=== PATIENT | female | born 1985 | race Caucasian/White ===

== ENCOUNTER 2020-08-09 01:29 | Emergency (ER) | payer OTHER ==
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
--- OUTSIDE RECORDS SUMMARY | 2020-08-09 01:31 | XMS REPORT | Continuity of Care Document ---
:1985 Author Organization [facility] t Address [address] [place] [address] Care Team Providers Name Role Phone [place] VIZCARRA S Attending Clinician Problems This patient has no known problems. Allergies, Adverse Reactions, Alerts This patient has no known allergies or adverse reactions. Medications This patient has no known medications. Procedures This patient has no known procedures. Encounters Start End Encounter Admission Attending Care Care Encounter Source Date/Time Date/Time Type Type Clinicians Facility Department ID 2020-06-19 2020-06-19 Emergency [place] [facility] [id number] 05:17:00 06:09:00 Kvng Gabriel [id number] [place] [id number] [place] [id number] Results This patient has no known results.
[2020-08-09] MEDS ORDERED: NA CHLORIDE 0.9% 1,000 ML ONE (01:56)
[2020-08-09] MEDS ORDERED: LORazepam 2 MG/ML VIAL ONE (01:56)
[2020-08-09] MEDS ORDERED: dexAMETHasone 10 MG/ML VIAL ONE (02:02)
[2020-08-09] MEDS ORDERED: NA CHLORIDE 0.9% 250 ML ONE (02:02)
[2020-08-09] MEDS ORDERED: FAMOTIDINE 20 MG/2 ML VIAL IV ONE (02:02)
[2020-08-09] MEDS ORDERED: AZITHROMYCIN 500 MG INJ IVPB ONE (02:02)
[2020-08-09] MEDS ORDERED: CEFTRIAXONE/SWI 1gm 1 GM/10 ML SYR ONE (02:03)
[2020-08-09] MEDS ORDERED: ALBUTEROL INHALER 60 PUFF/8 GM IH ONE (02:39)
[2020-08-09] MEDS ORDERED: ASPIRIN 81 MG CHEWABLE TABLET ONE (02:39)
[2020-08-09 02:46] LABS: Protime INR 0.98
[2020-08-09 02:49] LABS: Absolute Lymphocytes (CBC) 1.1 K/uL (0.7-4.9); Basophils % 0.6 % (0-1.3); Hematocrit 36.3 % (36.0-45.0); Lymphocytes % 36.1 % (15.3-44.8); MPV 8.3 fL (7.6-11.3); RBC Red Blood Cell Count 4.47 M/uL (3.86-4.86)
[2020-08-09 03:10] LABS: ALT/SGPT 80 U/L (12-78); AST/SGOT 50 U/L (15-37); Albumin 3.3 g/dL (3.4-5.0); Alkaline Phosphatase 83 U/L (45-117); BUN Blood Urea Nitrogen 11 mg/dL (7-18); Bicarbonate 24 mmol/L (21-32); Bilirubin Direct < 0.1 mg/dL (0-0.2); Bilirubin Total 0.3 mg/dL (0.2-1.0); Ferritin 107.3 ng/mL (8-388); Glucose Level 108 mg/dL (74-106); NT PRO-BNP 16 pg/mL (<125); Potassium 3.2 mmol/L (3.5-5.1); Protein, Total 6.9 g/dL (6.4-8.2); Sodium Level 139 mmol/L (136-145); Troponin (Emerg Dept Use Only) < 0.02 ng/mL (0.0-0.045)
[2020-08-09] MEDS ORDERED: POTASSIUM 25 MEQ EFFERV TAB ONE (03:47)
--- NOTE | 2020-08-09 04:38 | EDPHYS ---
Physician Documentation [facility] Name: Sheela Garcia Age: 34 yrs Sex: Female : 1985 Arrival Date: 08/09/2020 Time: 01:30 Bed 6 Private MD: ED Physician Red Gutiérrez HPI: 08/09 01:41 This 34 yrs old Female presents to ER via EMS with complaints of Shortness Of mercy Breath. 01:41 The patient has shortness of breath at rest. Onset: The symptoms/episode began/occurred mercy 3 day(s) ago. Duration: The symptoms are continuous, and are steadily getting worse. The patient's shortness of breath has no apparent modifying factors. Associated signs and symptoms: The patient has no apparent associated signs or symptoms. Severity of symptoms: At their worst the symptoms were mild moderate in the emergency department the symptoms are unchanged. The patient has not experienced similar symptoms in the past. Historical: - Allergies: 01:32 No Known Allergies; rv - PMHx: 01:32 Anxiety; Depression; rv - PSHx: 01:32 None; rv - Immunization history:: Adult Immunizations up to date. - Social history:: Smoking status: unknown. ROS: 01:45 Eyes: Negative for injury, pain, redness, and discharge, ENT: Negative for injury, mercy pain, and discharge, Neck: Negative for injury, pain, and swelling, Cardiovascular: Negative for chest pain, palpitations, and edema, Abdomen/GI: Negative for abdominal pain, nausea, vomiting, diarrhea, and constipation, Back: Negative for injury and pain, : Negative for injury, bleeding, discharge, and swelling, MS/Extremity: Negative for injury and deformity, Skin: Negative for injury, rash, and discoloration, Neuro: Negative for headache, weakness, numbness, tingling, and seizure, Psych: Negative for depression, anxiety, suicide ideation, homicidal ideation, and hallucinations, Allergy/Immunology: Negative for hives, rash, and allergies, Endocrine: Negative for neck swelling, polydipsia, polyuria, polyphagia, and marked weight changes. 01:45 Constitutional: Positive for chills, fatigue. 01:45 Cardiovascular: Positive for palpitations. 01:45 Respiratory: Positive for cough, shortness of breath, at rest. Exam: 01:45 Constitutional: This is a well developed, well nourished patient who is awake, alert, mercy and in no acute distress. Head/Face: Normocephalic, atraumatic. Eyes: Pupils equal round and reactive to light, extra-ocular motions intact. Lids and lashes normal. Conjunctiva and sclera are non-icteric and not injected. Cornea within normal limits. Periorbital areas with no swelling, redness, or edema. ENT: Nares patent. No nasal discharge, no septal abnormalities noted. Tympanic membranes are normal and external auditory canals are clear. Oropharynx with no redness, swelling, or masses, exudates, or evidence of obstruction, uvula midline. Mucous membranes moist. Neck: Trachea midline, no thyromegaly or masses palpated, and no cervical lymphadenopathy. Supple, full range of motion without nuchal rigidity, or vertebral point tenderness. No Meningismus. Chest/axilla: Normal chest wall appearance and motion. Nontender with no deformity. No lesions are appreciated. Abdomen/GI: Soft, non-tender, with normal bowel sounds. No distension or tympany. No guarding or rebound. No evidence of tenderness throughout. Back: No spinal tenderness. No costovertebral tenderness. Full range of motion. Female : Normal external genitalia. Skin: Warm, dry with normal turgor. Normal color with no rashes, no lesions, and no evidence of cellulitis. MS/ Extremity: Pulses equal, no cyanosis. Neurovascular intact. Full, normal range of motion. Neuro: Awake and alert, GCS 15, oriented to person, place, time, and situation. Cranial nerves II-XII grossly intact. Motor strength 5/5 in all extremities. Sensory grossly intact. Cerebellar exam normal. Normal gait. Psych: Awake, alert, with orientation to person, place and time. Behavior, mood, and affect are within normal limits. 01:45 Cardiovascular: Rate: tachycardic, Rhythm: regular, Pulses: Pulses are 4+ in bilateral radial, brachial, femoral, popliteal, posterior tibial and and dorsalis pedis arteries.. Heart sounds: normal, Edema: is not appreciated, JVD: is not appreciated. 01:49 ECG was reviewed by the Attending Physician. [facility] Vital Signs: 01:34 Pulse 95; Resp 26; Pulse Ox 100% ; rv 01:34 BP 141 / 104; Pulse 89; ea 02:30 BP 127 / 82; Pulse 89; Resp 25; Pulse Ox 100% on R/A; rv 03:37 BP 121 / 88; Pulse 93; Resp 16; Pulse Ox 100% ; rv 04:35 BP 118 / 58; Pulse 86; Resp 17; Temp 98.2; Pulse Ox 100% ; rv MDM: 01:35 Patient medically screened. mercy 01:46 Differential diagnosis: Anxiety Reaction asthma, Bronchitis pneumonia, Pneumothorax mercy pulmonary edema, Pulmonary Embolism reactive airway disease, Unstable Angina. Antibiotic administration: Rocephin and Zithromax given. The patient's Wells Deep Vein Thrombosis Score was calculated as follows: Total Score: 0-2 Pts- Low Risk. Differential Diagnosis: Bronchitis Influenza Upper Respiratory Infection Pharyngitis Asthma Exacerbation Viral Syndrome Pneumonia Tracheal Injury. The patient's pulmonary embolism risk score was calculated as follows: patient has experienced immobilization or surgery in the last four weeks (1.5 Pts) Total Score: 0-2 points. This patient was found to be at low risk for a pulmonary embolism by using the Well's assessment criteria. Immunization status:. Data reviewed: vital signs, nurses notes, EMS record, lab test result(s), EKG, radiologic studies, CT scan, plain films. Data interpreted: customer relations representative: rate is 95 beats/min, rhythm is regular, Pulse oximetry: on room air is 100 %. Test interpretation: by ED physician or midlevel provider: ECG, plain radiologic studies. Counseling: I had a detailed discussion with the patient and/or guardian regarding: the historical points, exam findings, and any diagnostic results supporting the discharge/admit diagnosis, lab results, radiology results, the need for outpatient follow up, for definitive care, a family practitioner, a manager health. 08/09 01:40 Order name: Basic Metabolic Panel; Complete Time: 03:11 08/09 01:40 Order name: CBC with Diff 08/09 01:40 Order name: LFT's; Complete Time: 03:11 08/09 01:40 Order name: Magnesium; Complete Time: 03:11 08/09 01:40 Order name: NT PRO-BNP; Complete Time: 03:11 08/09 01:40 Order name: PT-INR; Complete Time: 02:56 08/09 01:40 Order name: Troponin (emerg Dept Use Only); Complete Time: 03:11 08/09 01:40 Order name: XRAY Chest (1 view) [facility] 08/09 01:40 Order name: Blood Culture Adult (2) [facility] 08/09 01:40 Order name: Ferritin; Complete Time: 03:11 [facility] 08/09 01:40 Order name: CRP; Complete Time: 03:11 [facility] 08/09 01:40 Order name: CT Chest For PE Angio [facility] 08/09 01:49 Order name: Glucose, Ancillary Testing; Complete Time: 02:44 EDMS 08/09 02:50 Order name: Manual Differential EDMS 08/09 01:40 Order name: EKG; Complete Time: 01:42 [facility] 08/09 01:40 Order name: Cardiac monitoring; Complete Time: 01:43 [facility] 08/09 01:40 Order name: EKG - Nurse/Tech; Complete Time: 01:43 [facility] 08/09 01:40 Order name: IV Saline Lock; Complete Time: 01:43 [facility] 08/09 01:40 Order name: Labs collected and sent; Complete Time: 03:38 [facility] 08/09 01:40 Order name: O2 Per Protocol; Complete Time: :44 [facility] 08/09 01:40 Order name: O2 Sat Monitoring; Complete Time: 01:44 [facility] EC:49 Rate is 92 beats/min. Rhythm is regular. QRS Margaret is Normal. [place] interval is normal. QRS mercy interval is normal. QT interval is normal. No Q waves. T waves are Normal. No ST changes noted. Clinical impression: NSR w/ Non-specific ST/T Changes and No evidence of ischemia. Interpreted by me. Reviewed by me. Administered Medications: 01:51 Drug: NS 0.9% 1000 ml Route: IV; Rate: 1 bolus; Site: right forearm; rv 03:35 Follow up: IV Status: Completed infusion; IV Intake: 1000ml rv 01:51 Drug: Ativan 0.5 mg Route: IVP; Site: right forearm; rv 03:35 Follow up: Response: No adverse reaction rv 02:00 Drug: Pepcid 20 mg Route: IVP; Site: right forearm; ea 03:34 Follow up: Response: No adverse reaction rv 02:00 Drug: Decadron - Dexamethasone 10 mg Route: IVP; Site: right forearm; ea 03:35 Follow up: Response: No adverse reaction rv 02:27 Drug: Rocephin 1 grams Route: IV; Rate: per protocol; Site: right forearm; ea 03:35 Follow up: IV Status: Completed infusion rv 02:27 Drug: Aspirin Chewable Tablet 81 mg Route: PO; ea 03:35 Follow up: Response: No adverse reaction rv 02:27 Drug: Albuterol HFA Inhaler 4 puffs Route: Inhalation; ea 03:36 Follow up: Response: No adverse reaction; Marked relief of symptoms rv 02:42 Drug: Ativan 0.5 mg Route: IVP; Site: right forearm; ea 03:35 Follow up: Response: No adverse reaction; Marked relief of symptoms rv 02:42 Drug: Zithromax 500 mg Route: IVPB; Infused Over: 1 hrs; Site: right forearm; ea 04:36 Follow up: IV Status: Completed infusion rv 03:34 Drug: Potassium Effervescent Tablet 50 mEq Route: PO; rv 04:36 Follow up: Response: No adverse reaction rv Disposition: 08/09/20 04:37 Discharged to Home. Impression: Dyspnea, SARS-associated coronavirus as the cause of diseases classified elsewhere - covid 19 , Anxiety disorder, unspecified, Pneumonia due to other specified bacteria, Hypokalemia. - Condition is Stable. - Discharge Instructions: Potassium Content of Foods, Community-Acquired Pneumonia, Adult, Shortness of Breath, Shortness of Breath, [id number], Community-Acquired Pneumonia, Adult, [id number], Aspirin and Your Heart, Hypokalemia. - Prescriptions for dexamethasone 2 mg Oral tablet - take 1 tablet by ORAL route 3 times per day; 15 tablet. Pepcid 20 mg Oral Tablet - take 1 tablet by ORAL route every 12 hours for 10 days; 20 tablet. Xanax 0.5 mg Oral Tablet - take 1 tablet by ORAL route every 8 hours As needed; 20 tablet. Albuterol Sulfate 90 mcg/actuation - inhale 1-2 puff by INHALATION route every 4-6 hours; 1 Inhaler. Zithromax 500 mg Oral Tablet - take 1 tablet by ORAL route once daily for 4 days; 4 tablet. - Medication Reconciliation Form, Thank You Letter, Antibiotic Education, Prescription Opioid Use form. - Follow up: Private Physician; When: 2 - 3 days; Reason: Recheck today's complaints, Continuance of care, Re-evaluation by your physician. Follow up: Jose Elias Cid MD; When: 2 - 3 days; Reason: Recheck today's complaints, Continuance of care, Re-evaluation by your physician. - Problem is new. - Symptoms have improved. Signatures: Dispatcher [employer] EDRed Ponce MD MD cha Antunez, Elena, RN RN Marcial Edwards RN RN rv Corrections: (The following items were deleted from the chart) 04:46 04:37 08/09/2020 04:37 Discharged to Home. Impression: Dyspnea; SARS-associated rv coronavirus as the cause of diseases classified elsewhere - covid 19 ; Anxiety disorder, unspecified; Pneumonia due to other specified bacteria; Hypokalemia. Condition is Stable. Forms are Medication Reconciliation Form, Thank You Letter, Antibiotic Education, Prescription Opioid Use. Follow up: Private Physician; When: 2 - 3 days; Reason: Recheck today's complaints, Continuance of care, Re-evaluation by your physician. Follow up: Jose Elias Cid; When: 2 - 3 days; Reason: Recheck today's complaints, Continuance of care, Re-evaluation by your physician. Problem is new. Symptoms have improved. mercy
--- NOTE | 2020-08-09 04:38 | ER ---
Nurse's Notes [facility] Name: Sheela Garcia Age: 34 yrs Sex: Female : 1985 Arrival Date: 08/09/2020 Time: 01:30 Bed 6 Private MD: Diagnosis: Dyspnea;SARS-associated coronavirus as the cause of diseases classified elsewhere-covid 19 ;Anxiety disorder, unspecified;Pneumonia due to other specified bacteria;Hypokalemia Presentation: 08/09 01:34 Coronavirus screen: Client denies travel out of the [place] in the last 14 days. cough rv unrelated to allergies, difficulty breathing, shortness of breath, Client presents with at least one sign or symptom that may indicate coronavirus-19. Standard/surgical mask placed on the client. Provider contacted for isolation considerations. Client reports previous positive COVID test result. Date of collection: August 06, 2020. Ebola Screen: No symptoms or risks identified at this time. Initial Sepsis Screen: Does the patient meet any 2 criteria? No. Patient's initial sepsis screen is negative. Does the patient have a suspected source of infection? No. Patient's initial sepsis screen is negative. Risk Assessment: Do you want to hurt yourself or someone else? Patient reports no desire to harm self or others. Onset of symptoms is unknown. 01:34 Acuity: JEFFERSON 3 rv 01:34 Method Of Arrival: EMS: [facility] rv 01:37 Chief complaint: EMS states: she got tested Thursday for SARS-COVID and came back rv positive. increasing shortness of breath, with fever. Triage Assessment: 01:32 General: Appears comfortable, Behavior is calm, cooperative. Pain: Denies pain. EENT: rv No signs and/or symptoms were reported regarding the EENT system. Neuro: Level of Consciousness is awake, alert, obeys commands, Oriented to person, place, time, situation. Cardiovascular: Patient's skin is warm and dry. Respiratory: Reports shortness of breath at rest Onset: The symptoms/episode began/occurred gradually, the patient has mild shortness of breath. : No signs and/or symptoms were reported regarding the genitourinary system. Derm: Skin is intact. Historical: - Allergies: 01:32 No Known Allergies; rv - PMHx: :32 Anxiety; Depression; rv - PSHx: 01:32 None; rv - Immunization history:: Adult Immunizations up to date. - Social history:: Smoking status: unknown. Screenin:33 Abuse screen: Denies threats or abuse. Denies injuries from another. Nutritional rv screening: No deficits noted. Tuberculosis screening: No symptoms or risk factors identified. Fall Risk None identified. Assessment: 01:38 Cardiovascular: Rhythm is sinus rhythm. Respiratory: Airway is patent Respiratory rv effort is Respiratory pattern is tachypnea. Respiratory: Breath sounds are clear bilaterally. Vital Signs: 01:34 Pulse 95; Resp 26; Pulse Ox 100% ; rv 01:34 BP 141 / 104; Pulse 89; ea 02:30 BP 127 / 82; Pulse 89; Resp 25; Pulse Ox 100% on R/A; rv 03:37 BP 121 / 88; Pulse 93; Resp 16; Pulse Ox 100% ; rv 04:35 BP 118 / 58; Pulse 86; Resp 17; Temp 98.2; Pulse Ox 100% ; rv ED Course: 01:30 Patient arrived in ED. rv 01:33 Arm band placed on right wrist. Patient placed in the treatment room, on a stretcher, rv Patient notified of wait time. 01:35 Red Gutiérrez MD is Attending Physician. mercy 01:36 Triage completed. rv 01:38 Patient has correct armband on for positive identification. patient monitor on. Pulse rv ox on. NIBP on. 01:39 Lyubov Mendoza, ALEXANDRA is Primary Nurse. ea 01:52 Inserted saline lock: 20 gauge in right forearm, using aseptic technique. by matt. rv 01:57 XRAY Chest (1 view) In Process Unspecified. EDMS 03:38 CT Chest For PE Angio In Process Unspecified. EDMS 04:35 Jose Elias Cid MD is Referral Physician. mercy 04:35 No provider procedures requiring assistance completed. IV discontinued, intact, rv bleeding controlled, No redness/swelling at site. Pressure dressing applied. Administered Medications: 01:51 Drug: NS 0.9% 1000 ml Route: IV; Rate: 1 bolus; Site: right forearm; rv 03:35 Follow up: IV Status: Completed infusion; IV Intake: 1000ml rv 01:51 Drug: Ativan 0.5 mg Route: IVP; Site: right forearm; rv 03:35 Follow up: Response: No adverse reaction rv 02:00 Drug: Pepcid 20 mg Route: IVP; Site: right forearm; ea 03:34 Follow up: Response: No adverse reaction rv 02:00 Drug: Decadron - Dexamethasone 10 mg Route: IVP; Site: right forearm; ea 03:35 Follow up: Response: No adverse reaction rv 02:27 Drug: Rocephin 1 grams Route: IV; Rate: per protocol; Site: right forearm; ea 03:35 Follow up: IV Status: Completed infusion rv 02:27 Drug: Aspirin Chewable Tablet 81 mg Route: PO; ea 03:35 Follow up: Response: No adverse reaction rv 02:27 Drug: Albuterol HFA Inhaler 4 puffs Route: Inhalation; ea 03:36 Follow up: Response: No adverse reaction; Marked relief of symptoms rv 02:42 Drug: Ativan 0.5 mg Route: IVP; Site: right forearm; ea 03:35 Follow up: Response: No adverse reaction; Marked relief of symptoms rv 02:42 Drug: Zithromax 500 mg Route: IVPB; Infused Over: 1 hrs; Site: right forearm; ea 04:36 Follow up: IV Status: Completed infusion rv 03:34 Drug: Potassium Effervescent Tablet 50 mEq Route: PO; rv 04:36 Follow up: Response: No adverse reaction rv Intake: 03:35 IV: 1000ml; Total: 1000ml. rv Outcome: 04:37 Discharge ordered by MD. [place] 04:46 Discharged to home ambulatory. rv 04:46 Condition: good 04:46 Discharge instructions given to patient, Instructed on discharge instructions, follow up and referral plans. medication usage, Demonstrated understanding of instructions, follow-up care, medications, Prescriptions given X 5 04:46 Patient left the ED. rv Signatures: Dispatcher [employer] EDIA Red Gutiérrez MD MD cha Antunez, Elena RN RN Marcial Edwards RN RN rv
[2020-08-09 04:45] LABS: Blood Morphology Comment NOT SEEN (NOT SEEN); Platelet Estimate ADEQ
[2020-08-09 04:50] VITALS: O2SAT 100
[2020-08-09 04:54] VITALS: BP 118/58; TEMP 98.2
--- NOTE | 2020-08-09 09:05 | RAD REPORT ---
EXAM DESCRIPTION: RAD - Chest Single View - 08/09/2020 1:56 am CLINICAL HISTORY: Cough;Dyspnea Chest pain. COMPARISON: Chest Pa And Lat (2 Views) dated 04/04/2016 FINDINGS: Portable technique limits examination quality. The lungs are grossly clear. The heart is normal in size. No displaced fractures. IMPRESSION: No acute intrathoracic process suspected.
--- NOTE | 2020-08-09 10:41 | RAD REPORT ---
EXAM DESCRIPTION: CT Angiography Chest With Intravenous Contrast CLINICAL HISTORY: The patient is 34 years old and is Female; DYSPNEA TECHNIQUE: Axial computed tomographic angiography images of the chest with intravenous contrast. S agittal and coronal reformatted images were created and reviewed. This CT exam was performed using one or more of the following dose reduction techniques: automated exposure control, adjustment of t he mA and/or kV according to patient size, and/or use of iterative reconstruction technique. MIP reconstructed images were created and reviewed. COMPARISON: No relevant prior studies available. FINDINGS: PULMONARY ARTERIES: There are no obvious filling defects identified within the pulmonary arteries to suggest pulmonary embolism. AORTA: No acute findings. No thoracic aortic aneurysm. LUNGS: Nonspecific areas of opacity are scattered throughout the lungs specifically in the lung bases. PLEURAL SPACE: Unremarkable. No significant effusion. No pneumothorax. HEART: Unremarkable. No cardiomegaly. No significant pericardial effusion. No evidence of RV dysfunction. MEDIASTINUM: The tracheobronchial tree is widely patent. BONES/JOINTS: No acute fracture. No dislocation. SOFT TISSUES: Unremarkable. LYMPH NODES: Unremarkable. No enlarged lymph nodes. LIVER: The liver is enlarged and diffusely fatty. IMPRESSION: 1. No evidence of pulmonary embolism. 2. Imaging features can be seen with (COVID-19 or viral) pneumonia , though are nonspecific and can occur with a variety of infectious and noninfectious processes. [id number] Electronically signed by: Lolis Isidro MD 08/09/2020 3:47 AM RESPIRATORY CARE ASSISTANT Due to temporary technical issues with the PACS/Fluency reporting system, reports are being signed by the in house radiologist without review as a courtesy to ensure prompt reporting. The interpreting r adiologist is fully responsible for the content of the report.
--- NOTE | 2020-08-09 11:21 | EKG ---
Test Date: 2020-08-09 Test Time: 01:32:43 3D Technologist: RV MEASUREMENT RESULTS: Intervals: Rate: 92 WY: 170 QRSD: 78 QT: 342 QTc: 422 [place]: P: 37 WY: 170 QRS: 41 T: 60 INTERPRETIVE STATEMENTS: Normal sinus rhythm Normal ECG Compared to ECG 04/04/2016 09:49:49 No significant changes Electronically Signed On 08-09-20 11:20:42 HIGH LIFT DRIVER by Genaro Mota
== END 2020-08-09 04:46 | disposition home or self-care (01) ==
LOC: ER 01:29
DX: U07.1 COVID-19 (principal); J12.82 Pneumonia due to coronavirus disease 2019; E87.6 Hypokalemia; F41.9 Anxiety disorder, unspecified
CPT/HCPCS: 96365; 96361; 93005; 87040 ×2; 85025; 80048; 36415; 83735; 85610; 82947; 80076; 84484; 82728; 83880; 86140; 71275; 71045; 96375; 99285; Q9967; J0456; J1100; J0696; J7050; J7030

== ENCOUNTER 2020-08-28 07:09 | Emergency (ER) | payer OTHER ==
--- OUTSIDE RECORDS SUMMARY | 2020-08-28 07:11 | XMS REPORT | Continuity of Care Document ---
:1985 Author Organization [facility] t Address [address] [place] [address] Care Team Providers Name Role Phone [place] [...] Clinicians Facility Department ID 2020-06-19 2020-06-19 Emergency [facility]ly [facility] [id number] 05:17:00 06:09:00 Kvng Gabriel [id number] [place] [id number] [place] [id number] [id number] Results This patient has no known results.
[2020-08-28 09:00] LABS: Absolute Lymphocytes (CBC) 4.4 K/uL (0.7-4.9); Basophils % 0.6 % (0-1.3); Hematocrit 36.7 % (36.0-45.0); Lymphocytes % 37.4 % (15.3-44.8); RBC Red Blood Cell Count 4.33 M/uL (3.86-4.86)
[2020-08-28] MEDS ORDERED: KETOROLAC 30 MG/ML INJ ONE (09:05)
[2020-08-28 09:18] LABS: ALT/SGPT 81 U/L (12-78); AST/SGOT 41 U/L (15-37); Albumin 3.3 g/dL (3.4-5.0); Alkaline Phosphatase 94 U/L (45-117); BUN Blood Urea Nitrogen 23 mg/dL (7-18); Bicarbonate 24 mmol/L (21-32); Bilirubin Total 0.2 mg/dL (0.2-1.0); Glucose Level 94 mg/dL (74-106); Potassium 4.1 mmol/L (3.5-5.1); Protein, Total 6.5 g/dL (6.4-8.2); Sodium Level 141 mmol/L (136-145)
[2020-08-28 09:26] LABS: Blood Morphology Comment NOT SEEN (NOT SEEN); Platelet Estimate ADEQ; White Blood Cell Scan OK (OK)
--- NOTE | 2020-08-28 10:11 | ER ---
Nurse's Notes [facility] Name: Sheela Garcia Age: 34 yrs Sex: Female : 1985 Arrival Date: 08/28/2020 Time: 07:10 Bed 18 Private MD: Diagnosis: Pain in left leg;Pain in right leg Presentation: 08/28 07:45 Chief complaint: Patient states: jonel leg pain and cramping since yesterday. Pt states aa5 "I had COVID back in July 31 and it turned out into Pneumonia and I've also had so many other issues like food poisoning which I am taking Cipro for and my potassium has been low in the past so I am taking potassium". Pt states "I am also swollen just everywhere". 07:45 Coronavirus screen: Client reports previous positive COVID test result. Date of aa5 collection: July 31, 2020. Ebola Screen: Patient negative for fever greater than or equal to 101.5 degrees Fahrenheit, and additional compatible Ebola Virus Disease symptoms. Initial Sepsis Screen: Does the patient meet any 2 criteria? No. Patient's initial sepsis screen is negative. Does the patient have a suspected source of infection? No. Patient's initial sepsis screen is negative. Risk Assessment: Do you want to hurt yourself or someone else? Patient reports no desire to harm self or others. Onset of symptoms was August 27, 2020. 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 - Social history:: Smoking status: Patient denies any tobacco usage or history of. - Family history:: not pertinent. Screenin:00 Abuse screen: Denies threats or abuse. Nutritional screening: No deficits noted. aa5 Tuberculosis screening: No symptoms or risk factors identified. Fall Risk None identified. Assessment: 07:45 General: Appears uncomfortable, Behavior is calm, cooperative. Pain: Complains of pain aa5 in right leg and left leg Pain currently is 8 out of 10 on a pain scale. Quality of pain is described as crampy, Pain began 1 day ago. Is continuous. Neuro: Level of Consciousness is awake, alert, obeys commands, Oriented to person, place, time, situation. Cardiovascular: Patient's skin is warm and dry. Respiratory: Airway is patent Respiratory effort is even, unlabored, Respiratory pattern is regular, symmetrical. GI: No signs and/or symptoms were reported involving the gastrointestinal system. : No signs and/or symptoms were reported regarding the genitourinary system. EENT: No signs and/or symptoms were reported regarding the EENT system. Derm: Skin is pink, warm \\T\\ dry. Musculoskeletal: Range of motion: intact in all extremities. 08:43 Reassessment: Patient is alert, oriented x 3, equal unlabored respirations, skin aa5 warm/dry/pink. 09:34 Reassessment: Patient appears in no apparent distress at this time. Patient and/or jd3 family updated on plan of care and expected duration. Pain level reassessed. Patient is alert, oriented x 3, equal unlabored respirations, skin warm/dry/pink. Vital Signs: 07:45 BP 125 / 62; Pulse 80; Resp 20 S; Temp 98.0(O); Pulse Ox 99% on R/A; Weight 94.35 kg aa5 (R); Height 5 ft. 3 in. (160.02 cm) (R); Pain 8/10; 09:35 BP 113 / 59; Pulse 74; Resp 17 S; Pulse Ox 98% on R/A; jd3 07:45 Body Mass Index 36.85 (94.35 kg, 160.02 cm) aa5 ED Course: 07:10 Patient arrived in ED. am2 07:45 Grace Tobar, RN is Primary Nurse. aa5 07:45 Arm band placed on Patient placed in an exam room, on a stretcher. aa5 07:45 Patient has correct armband on for positive identification. Bed in low position. Call aa5 light in reach. Side rails up X 1. Pulse ox on. NIBP on. 07:51 Stef Saldaña MD is Attending Physician. ma2 08:03 Triage completed. aa5 08:43 Initial lab(s) drawn, by nd, sent to lab. Inserted saline lock: 22 gauge in right aa5 antecubital area, using aseptic technique. Blood collected. 09:00 Report given to ALEXANDRA Schuler. aa5 Administered Medications: 08:57 Drug: TORadol 30 mg Route: IVP; Site: right antecubital; aa5 Outcome: 10:11 Discharge ordered by . ma2 10:28 Patient left the ED. jd3 Signatures: Grace Tobar RN RN aa5 Shoshana Sykes Jonathon, RN RN jd3 Stef Saldaña MD MD ma2
--- NOTE | 2020-08-28 10:12 | EDPHYS ---
Physician Documentation [facility] Name: Sheela Garcia Age: 34 yrs Sex: Female : 1985 Arrival Date: 08/28/2020 Time: 07:10 Bed 18 Private MD: ED Physician Stef Saldaña HPI: 08/28 09:36 This 34 yrs old Female presents to ER via Wheelchair with complaints of Leg ma2 Pain. 09:36 The patient presents with pain, that is acute. The complaints affect the right leg and ma2 left leg. Onset: The symptoms/episode began/occurred gradually, 3 day(s) ago. Associated signs and symptoms: Pertinent negatives nausea, rash, swelling, tingling. Severity of symptoms: At their worst the symptoms were moderate, in the emergency department the symptoms are unchanged. The patient has not experienced similar symptoms in the past. 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 - Social history:: Smoking status: Patient denies any tobacco usage or history of. - Family history:: not pertinent. ROS: 09:36 Constitutional: Negative for fever, chills, and weight loss. ma2 09:36 All other systems are negative. Exam: 09:36 Constitutional: This is a well developed, well nourished patient who is awake, alert, ma2 and in no acute distress. Eyes: Pupils equal round and reactive to light, extra-ocular motions intact. Lids and lashes normal. Conjunctiva and sclera are non-icteric and not injected. Cornea within normal limits. Periorbital areas with no swelling, redness, or edema. ENT: Nares patent. No nasal discharge, no septal abnormalities noted. Tympanic membranes are normal and external auditory canals are clear. Oropharynx with no redness, swelling, or masses, exudates, or evidence of obstruction, uvula midline. Mucous membranes moist. Neck: Trachea midline, no thyromegaly or masses palpated, and no cervical lymphadenopathy. Supple, full range of motion without nuchal rigidity, or vertebral point tenderness. No Meningismus. Chest/axilla: Normal chest wall appearance and motion. Nontender with no deformity. No lesions are appreciated. Cardiovascular: Regular rate and rhythm with a normal S1 and S2. No gallops, murmurs, or rubs. Normal PMI, no JVD. No pulse deficits. Respiratory: Lungs have equal breath sounds bilaterally, clear to auscultation and percussion. No rales, rhonchi or wheezes noted. No increased work of breathing, no retractions or nasal flaring. Abdomen/GI: Soft, non-tender, with normal bowel sounds. No distension or tympany. No guarding or rebound. No evidence of tenderness throughout. Back: No spinal tenderness. No costovertebral tenderness. Full range of motion. Skin: Warm, dry with normal turgor. Normal color with no rashes, no lesions, and no evidence of cellulitis. MS/ Extremity: Pulses equal, no cyanosis. Neurovascular intact. Full, normal range of motion. Neuro: Awake and alert, GCS 15, oriented to person, place, time, and situation. Cranial nerves II-XII grossly intact. Motor strength 5/5 in all extremities. Sensory grossly intact. Cerebellar exam normal. Normal gait. Psych: Awake, alert, with orientation to person, place and time. Behavior, mood, and affect are within normal limits. Vital Signs: 07:45 BP 125 / 62; Pulse 80; Resp 20 S; Temp 98.0(O); Pulse Ox 99% on R/A; Weight 94.35 kg aa5 (R); Height 5 ft. 3 in. (160.02 cm) (R); Pain 8/10; 09:35 BP 113 / 59; Pulse 74; Resp 17 S; Pulse Ox 98% on R/A; jd3 07:45 Body Mass Index 36.85 (94.35 kg, 160.02 cm) aa5 MDM: 07:51 Patient medically screened. ma2 09:36 Differential diagnosis: contusion, abrasion, tendonitis. [facility] 10:10 Data reviewed: vital signs, nurses notes. Counseling: I had a detailed discussion with [facility] the patient and/or guardian regarding: the historical points, exam findings, and any diagnostic results supporting the discharge/admit diagnosis, the presence of at least one elevated blood pressure reading (>120/80) during this emergency department visit, the need for outpatient follow up. Response to treatment: the patient's symptoms have markedly improved after treatment. 08/28 08:14 Order name: CMP dc2 08/28 08:14 Order name: CBC with Diff dc2 08/28 08:14 Order name: TSH dc2 08/28 08:14 Order name: T4 Free dc2 08/28 08:57 Order name: Urine Dipstick--Ancillary (enter results) bd 08/28 08:57 Order name: Urine --Ancillary (enter results) bd 08/28 09:01 Order name: CBC with Automated Diff; Complete Time: 09:45 EDMS 08/28 09:18 Order name: Comprehensive Metabolic Panel; Complete Time: 09:45 EDMS 08/28 09:18 Order name: T4 Free; Complete Time: 09:45 EDMS 08/28 09:18 Order name: Thyroid Stimulating Hormone; Complete Time: 09:45 EDMS 08/28 09:26 Order name: CBC Smear Scan; Complete Time: 09:45 EDMS Administered Medications: 08:57 Drug: TORadol 30 mg Route: IVP; Site: right antecubital; aa5 Disposition: 08/28/20 10:11 Discharged to Home. Impression: Pain in left leg, Pain in right leg. - Condition is Stable. - Discharge Instructions: Musculoskeletal Pain. - Prescriptions for Diclofenac Sodium 75 mg Oral Tablet Sustained Release - take 1 tablet by ORAL route 2 times per day; 30 tablet. - Medication Reconciliation Form, Thank You Letter, Antibiotic Education, Prescription Opioid Use form. - Follow up: Private Physician; When: Tomorrow; Reason: Continuance of care. Signatures: Dispatcher [employer] Grace Ford RN RN aa5 Ganga Espinosa RN RN jd3 Stef Saldaña MD MD ma2 Corrections: (The following items were deleted from the chart) 10:28 10:11 08/28/2020 10:11 Discharged to Home. Impression: Pain in left leg; Pain in right jd3 leg. Condition is Stable. Prescriptions for Diclofenac Sodium 75 mg Oral Tablet Sustained Release - take 1 tablet by ORAL route 2 times per day; 30 tablet. and Forms are Medication Reconciliation Form, Thank You Letter, Antibiotic Education, Prescription Opioid Use. Follow up: Private Physician; When: Tomorrow; Reason: Continuance of care. ma2
[2020-08-28 10:34] VITALS: TEMP 98
[2020-08-28 10:35] VITALS: BP 113/59; O2SAT 98
[2020-08-28 12:17] LABS: Urine Blood NEGATIVE (NEG); Urine Glucose NEGATIVE (NEG); Urine Protein NEGATIVE (NEG); Urine Specific Gravity 1.015 (1.005-1.030); Urine pH 6.5 (5.0-7.0)
== END 2020-08-28 10:28 | disposition home or self-care (01) ==
LOC: ER 07:09
DX: M79.604 Pain in right leg (principal); M79.605 Pain in left leg; F41.9 Anxiety disorder, unspecified; F32.9 Major depressive disorder, single episode, unspecified
CPT/HCPCS: 36415; 80053; 81003; 81025; 84439; 84443; 85025; 96374; 99284